=== PATIENT | female | born 1995 | race Caucasian/White ===

== ENCOUNTER → 2019-06-17 | Outpatient (CLI) | payer OTHER | END | disposition home or self-care (01) | LOC: PRENATAL 13:00 | DX: O28.1 Abnormal biochemical finding on antenatal screening of mother (principal); O99.89 Other specified diseases and conditions complicating pregnancy, childbirth and the puerperium; O35.3XX1 Maternal care for (suspected) damage to fetus from viral disease in mother, fetus 1 ==

== ENCOUNTER → 2019-07-15 | Outpatient (CLI) | payer OTHER | END | disposition home or self-care (01) | LOC: PRENATAL 08:00 | DX: O26.842 Uterine size-date discrepancy, second trimester (principal); O28.1 Abnormal biochemical finding on antenatal screening of mother; O99.212 Obesity complicating pregnancy, second trimester ==

== ENCOUNTER → 2019-09-09 | Outpatient (CLI) | payer OTHER | END | disposition home or self-care (01) | LOC: PRENATAL 08:30 | DX: O99.213 Obesity complicating pregnancy, third trimester (principal); O36.8193 Decreased fetal movements, unspecified trimester, fetus 3; O26.843 Uterine size-date discrepancy, third trimester; O09.93 Supervision of high risk pregnancy, unspecified, third trimester; O99.013 Anemia complicating pregnancy, third trimester; O99.283 Endocrine, nutritional and metabolic diseases complicating pregnancy, third trimester ==